=== PATIENT | female | born 1965 | race Caucasian/White ===

== ENCOUNTER 2020-05-20 10:30 | Outpatient (CLI) | payer OTHER, SELFPAY ==
--- NOTE | 2020-05-20 11:30 | NEURO_ITS ---
Impression: # Complains of increasing weakness and numbness of legs. History of malignancy and chemotherapy. # Poor peroneal nerve responses. # No responses from posterior tibial nerves bilaterally. # No responses from sensory nerves. 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 Nerve Conduction Studies Anti Sensory Summary Table Stim Site NR Peak (ms) P-T Amp (?V) Site1 Site2 Delta-P (ms) Dist (cm) Tae (m/s) Left Sup Fibular Anti Sensory (Ant Lat Mall) NO RESPONSE 14 cm NR 14 cm Ant Lat Mall 16.0 Right Sup Fibular Anti Sensory (Ant Lat Mall) NO RESPONSE 14 cm NR 14 cm Ant Lat Mall 16.0 Left Sural Anti Sensory (Lat Mall) NO RESPONSE Calf NR Calf Lat Mall 16.0 Right Sural Anti Sensory (Lat Mall) NO RESPONSE Calf NR Calf Lat Mall 16.0 Motor Summary Table Stim Site NR Onset (ms) O-P Amp (mV) Site1 Site2 Delta-0 (ms) Dist (cm) Tae (m/s) Left Peroneal Motor (Vastus Med) Ankle 4.8 0.4 Popit Ankle 9.0 40.0 44 Popit 13.8 0.2 Right Peroneal Motor (Vastus Med) Ankle 5.2 0.3 Popit Ankle 7.7 38.0 49 Popit 12.9 0.3 Left Tibial Motor (Abd Haile Brev) NO RESPONSE Ankle NR Knee Ankle 0.0 Knee NR Right Tibial Motor (Abd Haile Brev) NO RESPONSE Ankle NR Knee NR F Wave Studies NR F-Lat (ms) L-R F-Lat (ms) Left Peroneal (Mrkrs) (EDB) 54.50 0.00 Right Peroneal (Mrkrs) (EDB) 54.50 0.00 Left Tibial (Mrkrs) (Abd Hallucis) 56.26 Right Tibial (Mrkrs) (Abd Hallucis) NO RESPONSE NR EMG Side Muscle Nerve Root Ins Act Fibs Amp Dur Recrt Comment Right AntTibialis Dp Br Fibular L4-5 Nml Nml Decr Nml Reduced Right Gastroc Tibial S1-2 Nml Nml Decr Nml Reduced Right Fibularis Long Sup Br Fibular L5-S1 Nml Nml Decr Nml Reduced Right Flex Dig Long Tibial L5-S2 Nml Nml Decr Nml Reduced Right Ext Dig Brev Dp Br Fibular L5, S1 Nml Nml Decr Nml Reduced Left AntTibialis Dp Br Fibular L4-5 Nml Nml Decr Nml Reduced Left Gastroc Tibial S1-2 Nml Nml Decr Nml Reduced Left Fibularis Long Sup Br Fibular L5-S1 Nml Nml Decr Nml Reduced Left Flex Dig Long Tibial L5-S2 Nml Nml Decr Nml Reduced Left Ext Dig Brev Dp Br Fibular L5, S1 Nml Nml Decr Nml Reduced MTDD
== END 2020-05-20 10:31 | disposition home or self-care (01) ==
PROVIDERS: PCP Podiatrist Foot & Ankle Surgery; Visit Provider Podiatrist Foot & Ankle Surgery
DX: G60.8 Other hereditary and idiopathic neuropathies (principal); M79.671 Pain in right foot; M79.672 Pain in left foot
CPT/HCPCS: 95886; 95910

== ENCOUNTER 2020-05-27 10:28 | Outpatient (RCR) | payer OTHER, SELFPAY ==
--- NOTE | 2020-05-27 11:42 | PTOPEVAL ---
PHYSICAL THERAPY EVALUATION AND PLAN OF CARE 05-27-20 Thank you for referring Lurdes López to [facility].? She is scheduled to be seen for therapy? 1 x/week for 6 weeks. Lurdes requested only 1x/week due to other appointments. Please review, sign, date and return this plan of care TI. I agree with and certify that the following plan of care is medically necessary. Referring Physician Date Attending Provider: Rosy Vega PA-C *PT Outpatient Evaluation Document 05/27/20 10:35 DANIEL (Rec: 05/27/20 11:42 DANIEL [id number]) Outpatient Past Medical History Past Medical History Source of Past Medical History Patient Neurological History Hx Other Neurological Disorders Yes: neuropathy of arms and legs--recent test for neuropathy Cardiovascular History Hx Congestive Heart Failure Yes: meds Hx Hypercholesterolemia Yes: meds Hx Other Cardiac Disorders Yes: had testing recent: echocardiogram, carotid US from chemo treatment Respiratory History Hx Other Respiratory Disorders Yes: SOB due to panic attacks and wearing mask Gastrointestinal History Hx Gastrointestinal Disorders No Significant History Musculoskeletal History Hx Arthritis Yes: pain in both legs, feet and knees; microtears both shoulders Hx Other Musculoskeletal Disorders Yes: loss of feeling/ sensation in B arms and both legs; R ankle sprain Hematological History Hx Hematological Disorders No Significant History Endocrine History Hx Hypothyroidism Yes: meds HEENT History Hx Other HEENT Disorders Yes: 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
--- NOTE | 2020-07-09 11:10 | PCPTNOTE ---
PHYSICAL THERAPY DISCHARGE 07-09-20 Attending Provider: LAURA Porter Patient:Lurdes López Date of :1965 Mrs. López has not returned for any further treatments since the initial PT evaluation on 05/27/2020, for the diagnosis of B leg weakness and bursitis L knee. Therefore she will be discharged at this time. The goals were not addressed. Thank you for referring this patient to [facility]. Please review, sign, date and return this discharge summary TI. I have been updated about the patient's current status and I agree with discharge from the above service at this time. Referring Physician Date
== END 2020-07-09 14:41 | disposition home or self-care (01) ==
LOC: ANHPT 10:28
PROVIDERS: PCP Podiatrist Foot & Ankle Surgery
DX: M70.52 Other bursitis of knee, left knee (principal); R29.898 Other symptoms and signs involving the musculoskeletal system
CPT/HCPCS: 97162

== ENCOUNTER 2021-05-18 22:50 | Emergency (ER) | payer OTHER, SELFPAY ==
--- NOTE | 2021-05-18 22:53 | PC.NURSE ---
Jose. please call when patient gets a room.
[2021-05-18 22:55] VITALS: BP 118/64; PULSE 110; RESP 18; TEMP 36.4; O2SAT 99
--- NOTE | 2021-05-18 23:34 | ED.ALLEREA ---
HPI - Allergic Reaction General Chief complaint: Allergic Reaction Stated complaint: shortness of breath Time Seen by Provider: 05/18/21 23:34 Source: patient Mode of arrival: ambulatory Limitations: no limitations History of Present Illness HPI narrative: The patient is a 56-year-old female with a history of bipolar disorder, breast cancer, peripheral neuropathy, presenting to the emergency department for evaluation of itching rash, concern for allergic reaction. Patient starts that she recently was started on Lyrica, states that she started to feel unwell this morning with hives all over her body. Patient states that she took some Benadryl this evening, reports taking 2 tablets which did improve her symptoms. Patient states that when she began to feel short of breath and have swelling in her lower lip, she wanted to come to the emergency department. She denies nausea, vomiting, wheezing. She denies diarrhea. She reports history of allergies in the past to numerous medications including penicillins. She denies known food allergies. She denies history of anaphylaxis. Patient denies new soaps, lotions, detergents or other new chemical exposures. Related Data Home Medications Medication Instructions Recorded Confirmed aripiprazole 15 mg tablet 15 mg PO DAILY 02/22/21 02/22/21 aripiprazole 30 mg tablet 30 mg PO DAILY 02/22/21 02/22/21 diclofenac submicronized 18 mg 18 mg PO TID 02/22/21 02/22/21 capsule furosemide 40 mg tablet 40 mg PO BID 02/22/21 02/22/21 hydroxyzine pamoate 25 mg capsule 25 mg PO DAILY cap 02/22/21 02/22/21 levothyroxine 50 mcg tablet 50 mcg PO DAILY 02/22/21 02/22/21 meclizine 25 mg tablet 25 mg PO DAILY tablet 02/22/21 02/22/21 potassium chloride 10 mEq 10 meq PO DAILY 02/22/21 02/22/21 capsule,extended release spironolactone 50 mg tablet 50 mg PO DAILY 02/22/21 02/22/21 Allergies Allergy/AdvReac Type Severity Reaction Status Date / Time epinephrine Allergy Unknown MAKES ME Verified 05/18/21 23:01 FEEL DIZZY & FUNNY. I DON'T LIKE IT W/DENTAL SHOT pregabalin [From Lyrica] Allergy Swelling Verified 05/18/21 23:01 of Lip/Tongue/Throat Review of Systems Review of Systems: CONSTITUTIONAL: Denies fever, chills, or sweats. EYES: Denies visual changes, redness, or discharge. ENT: Denies rhinorrhea, congestion, sore throat, or otalgia. CARDIOVASCULAR: Denies chest pain, palpitations, or edema. RESPIRATORY: Denies cough or dyspnea. GASTROINTESTINAL: Denies abdominal pain, nausea, vomiting, or diarrhea. GENITOURINARY: Denies dysuria or hematuria. SKIN: Reports hives, itching rash MUSCULOSKELETAL: Denies back pain, joint pain, or myalgia. NEUROLOGIC: Denies headache, numbness, or weakness. [facility] Past Medical History Medical History (Updated 05/19/21 @ 02:35 by Maryam Kirkland MD) Neuropathic pain Social History Social History (Updated 05/19/21 @ 00:01 by Maryam Kirkland MD) Smoking status: Smoker, status unknown Alcohol intake: never Substance use: never Gender identity (if verbalized by the patient): Female Exam Narrative: GENERAL: Awake, alert, conversant HEAD: Normocephalic, atraumatic. EYES: PERRLA and EOMI. ENT: Nares clear, no rhinorrhea or epistaxis. Mucous membranes moist. No lip edema. No facial edema. Uvula is midline. No trismus. No tongue swelling. NECK: Supple. CHEST: No respiratory distress, breathing even and non labored HEART: Tachycardic rate, sinus rhythm ABDOMEN:Non distended, non tender EXTREMITIES: Normal range of motion. No edema. SKIN: Warm, dry. Extensive urticaria on all extremities, thorax, abdomen, chest, neck. No mucous membrane involvement. No ecchymosis. No petechiae. Abrasions from scratching to the bilateral axilla. NEURO:No focal deficits. Alert and oriented x3 Course Vital Signs Vital signs: Vital Signs Temperature 36.4 C L 05/18/21 22:55 Pulse Rate 110 H 05/18/21 22:55 Respir
[2021-05-19] MEDS: diphenhydrAMINE HCl INJ 50 MG/ML VIAL 25 MG IV PUSH
[2021-05-19] MEDS: methylPREDNISolone SOD SUCC 125 MG VIAL IV PUSH
[2021-05-19] MEDS: FAMOTIDINE 20 MG/2 ML VIAL IV PUSH
[2021-05-19] MEDS: SODIUM CHLORIDE 0.9% IV 1,000 ML 999 ML IV CONT (00:17)
[2021-05-19 00:29] LABS: Basophils Percent Auto 0.1 % (0.2-1.2); Eosinophils Absolute Auto 0.1 K/mm3 (0-0.3); Eosinophils Percent Auto 0.6 % (0-4.4); Hematocrit 41.3 % (37.0-47.0); Hemoglobin 14.3 g/dL (12.0-15.0); Immature Granulocyte Absolute 0.02 K/mm3 (0.00-0.031); Immature Granulocyte Percent A 0.2 % (0-0.5); Lymphocytes Absolute Auto 1.09 K/mm3 (0.9-3.2); Lymphocytes Percent Auto 13.4 % (18.3-44.2); Mean Corpuscular HGB Conc 34.6 g/dl (32-36); Mean Corpuscular Volume 98.1 fl (80-100); Mean Platelet Volume 8.6 fl (7.4-10.4); Monocytes Absolute Auto 0.3 K/mm3 (0.1-0.6); Monocytes Percent Auto 3.2 % (2.6-8.5); Neutrophils Absolute Auto 6.7 K/mm3 (1.3-6.7); Neutrophils Percent Auto 82.5 % (45.5-73.1); Platelet Count Result 199 k/mm3 (150-375); Red Blood Count 4.21 M/mm3 (4.2-5.4); Red Cell Distribution Width 11.9 % (11.5-14.5); White Blood Count 8.1 K/mm3 (4.5-10.0)
[2021-05-19 00:31] LABS: Anion Gap 9 mmol/L (8-16); Blood Urea Nitrogen 22 mg/dL (7-17); Calcium 9.1 mg/dL (8.4-10.2); Carbon Dioxide 30 mmol/L (22-30); Chloride 97 mmol/L (98-107); Estimated CRCL calculation 72 ml/min; Estimated Glomerular Filt Rate 57; Glucose 117 mg/dL (65-110); Potassium 3.6 mmol/L (3.4-5.0); Sodium 136 mmol/L (137-145)
[2021-05-19 01:20] VITALS: BP 138/72; PULSE 95; RESP 18; O2SAT 97
[2021-05-19] MEDS: EPINEPHrine HCL INJ 1 MG/ML AMPUL 0.3 MG IM (01:22)
[2021-05-19 01:39] LABS: RBC Urine 0-2 /hpf (0-2); Squamous Epithelial Cell Urine Rare /hpf (Few)
[2021-05-19 01:41] LABS: Appearance Urine Clear (Clear); Bilirubin Urine Negative (Negative); Blood Urine Negative (Negative); Color Urine Yellow (Yellow); Glucose Urine UA Negative (Negative); Ketones Urine Negative (Negative); Leukocyte Esterase Ur Trace LEU/UL (Negative); Nitrate Urine Negative (Negative); Protein Urine Negative (Negative); Urobilinogen Urine 0.2 mg/dL (<2.0)
[2021-05-19 01:42] LABS: Add Urine Microscopic? YES
[2021-05-19 03:01] VITALS: BP 135/78; PULSE 91; RESP 19; O2SAT 97
== END 2021-05-19 03:02 | disposition home or self-care (01) ==
PROVIDERS: Emergency Provider Emergency Medicine
DX: L50.9 Urticaria, unspecified (principal); T78.40XA Allergy, unspecified, initial encounter
CPT/HCPCS: 36415; 80048; 81001; 85025; 96361; 96372; 96374; 96375; 99284; J0171; J1200; J2930; J7030

== ENCOUNTER 2023-06-15 08:41 | Outpatient (CLI) | payer OTHER, SELFPAY ==
--- NOTE | ~2023-06-15 | MR_ITS ---
MRI of the brain Clinical History: Personal history of physical injury, chronic memory loss Technique: Axial and sagittal T1-weighted images were acquired. These were followed by axial T2-weigh yari, diffusion weighted, gradient, and FLAIR images. Findings: No significant signal abnormality seen in the brain parenchyma. No acute infarct, intracran ial hemorrhage, or mass lesion. Ventricles and subarachnoid spaces are minimally dilated. Orbits are unremarkable. Paranasal sinuses and mastoid air cells are essentially clear. Major intracranial flow voids are intact. Sagittal midline structures are intact. IMPRESSION: No significant abnormality identified. Reviewed, dictated and finalized at location .
== END 2023-06-15 08:42 ==
LOC: MICIMG 08:43
PROVIDERS: PCP Psychiatry & Neurology Neurology; Visit Provider Psychiatry & Neurology Neurology
DX: R41.3 Other amnesia (principal); Z87.828 Personal history of other (healed) physical injury and trauma
CPT/HCPCS: 70551